=== PATIENT | male | born 1965 ===

== ENCOUNTER 2023-05-05 11:52 | Outpatient (CLI) | payer OTHER | END 2023-05-05 11:58 | disposition home or self-care (01) | LOC: TOM 11:52 | PROVIDERS: ATTEND Orthopaedic Surgery | DX: S60.211A Contusion of right wrist, initial encounter (principal) ==

== ENCOUNTER 2025-02-25 07:00 | Day surgery (SDC) | payer OTHER ==
[2025-02-19 09:37] VITALS: BP 121/69
[2025-02-19 09:58] LABS: BASO % 0.8 % (0.1-1.2); EOS # 0.13 (0.04-0.54); EOS % 2.6 % (0.7-7.0); LYMPH # 1.77 (1.18-3.74); LYMPH % 35.7 % (19.3-53.1); MEAN PLATELET VOLUME 10.40 fl (9.4-12.4); MONO # 0.50 (0.24-0.82); MONO % 10.1 % (4.7-12.5); NEUT # 2.50 (1.56-6.13); NEUT % 50.4 % (34.0-71.1); RED CELL DISTRIBUTION WIDTH 13.2 % (11.6-14.4)
[2025-02-19 10:01] LABS: URINE APPEARANCE Clear; URINE BILIRRUBIN Negative (NEGATIVE); URINE BLOOD Negative; URINE COLOR Yellow; URINE GLUCOSE Negative (NEGATIVE); URINE KETONE Negative (NEGATIVE); URINE LEUKOCYTE Negative; URINE NITRATE Negative; URINE PROTEIN Negative (NEGATIVE); URINE UROBILINOGEN 0.2 E.U./dl
[2025-02-19 10:05] LABS: URINE BACTERIA 11.4 uL (0.0-1933); URINE RBC 3.9 uL (0.0-20.8)
[2025-02-19 10:28] LABS: URINE CAST 0.00 uL (0.0-1.40); URINE EPITHELIAL CELLS 1.2 uL (0.0-38.8); URINE WBC 0.6 uL (0.0-23.2)
[2025-02-19 10:33] LABS: INR 0.94
[2025-02-19 11:09] LABS: ALT/SGPT 40.0 U/L (12-78); AST/SGOT 36.0 U/L (15-37); BILIRUBIN TOTAL 0.79 mg/dL (0.3-1.2); BUN CREA RATIO 31.0 (7.0-25.0); CREATININE SERUM 1.13 mg/dL (0.70-1.30); GFR 66.42; GLOBULINA 3.1 G/DL (2.4-3.5); GLUCOSE FASTING 91.0 mg/dL (65-100); OSMOLALITY SERUM 289.0 MOSM/KG (275-295)
[~2025-02-25] VITALS: Ht 180.3 cm; Wt 74.8 kg
[~2025-02-25 07:00] MED LIST: ADULT LOW DOSE81 M1; CEFAZOLIN SODIUM 1,000 MG VIAL ONE; CRESTOR40 MG
[2025-02-25] MEDS ORDERED: BUPIVACAINE HCL/MPF 0.5% 30ML VIAL ONE (07:22)
[2025-02-25] MEDS ORDERED: SUGAMMADEX SODIUM 200 MG/2 ML VIAL IV ONE (08:08)
== END 2025-02-25 15:00 | disposition home or self-care (01) ==
LOC: CIR.AMB 07:00
PROVIDERS: ATTEND Surgery
DX: K40.90 Unilateral inguinal hernia, without obstruction or gangrene, not specified as recurrent (principal)
CPT/HCPCS: 49650; C1781